=== PATIENT | female | born 1945 | race Caucasian/White ===

== ENCOUNTER 2017-02-04 11:01 | Outpatient (RCR) | payer MEDICARE, OTHER ==
--- OUTSIDE RECORDS SUMMARY | 2017-01-08 10:12 | XMS REPORT | Continuity of Care Document ---
Author Author [facility] Organization [facility] Address Unknown Phone Unavailable Care Team Providers Care Bathhouse Keeper Name Role Phone COURTNEY RAMESH MD PCP Insurance Providers Payer Name Policy Number Subscriber Name Relationship Wps Medicare [id number] Nancie Mas 18 Self / Same As Patient Comm Crossover Enter Ins Name [id number] Nancie Mas 18 Self / Same As Patient Advance Directives Directive Response Recorded Date/Time Advance Directives No 11/25/14 12:12pm Health Care Power of Finance Specialist No 11/25/14 12:12pm Organ Donor Yes 11/25/14 12:12pm Resuscitation Status Full Code 11/25/14 12:12pm Chief Complaint and Reason for Visit Chief Complaint Abdominal/GI Problems Reason for Visit [id number] Problems Medical Problems Problem Onset Date Status Leukocytosis Unknown Active Abdominal pain Unknown Active Colitis, acute Unknown Active C. difficile diarrhea Unknown Active Medications Medication Dose Route Sig Days/Qty Instructions Order Date Discontinued Date Status Indapamide 1.25 Mg PO 12/14/13 Active Lisinopril 40 Mg PO 12/14/13 Active Cholecalciferol (Vitamin D3) 2,000 Unit PO 12/14/13 Active Lactobacillus Combination No.4 1 Each PO 12/14/13 Active Lansoprazole 15 Mg PO 12/14/13 Active Insulin Detemir 100 U SQ DAILY 12/14/13 Active Metformin HCl (Glucophage) 1 Each PO TWICE A DAY WITH MEALS 12/14/13 Active Methotrexate 7.5 Mg PO Q7D 12/14/13 Active Prednisone 2 Mg PO DAILY 12/14/13 Active Folic Acid 1 Mg PO DAILY 12/14/13 Active [enduracin] 750 Mg PO TWICE A DAY 12/14/13 Active Alprazolam 0.25 Mg PO 12/14/13 Active Metoprolol Succinate (Toprol Xl) 1 Each PO DAILY 12/14/13 Active Fluoxetine HCl 1 Each PO DAILY 12/14/13 Active Multivitamins 1 Tab PO 12/14/13 Active Fish Oil/Dha/Epa 1 Each PO 12/14/13 Active Aspirin 81 Mg PO 12/14/13 Active Diphenoxylate Hcl/Atrop Sulf 1 Each PO EVERY 4HRS 11/02/14 Active [Welchol] 625 Mg PO TWICE A DAY 11/02/14 Active Metronidazole 500 Mg PO THREE TIMES A DAY 21 Qty 11/05/14 Active Vancomycin Hcl 125 Mg PO EVERY 6 HOURS 10 Days 11/25/14 Active Ondansetron HCl 8 Mg PO EVERY 6 HOURS PRN NAUSEA/VOMITING 14 Qty Active Social History Social History Problem Response Recorded Date/Time Alcohol Use Denies Use 11/25/2014 12:12pm Recreational Drug Use No 11/25/2014 12:12pm Recent Foreign Travel No 11/25/2014 12:07pm Sexually Transmitted Disease No 11/25/2014 12:12pm HIV/AIDS No 11/25/2014 12:12pm Smoking Status Never a Smoker 11/25/2014 12:12pm Query Response Start Date Stop Date Smoking Status Never a Smoker Hospital Discharge Instructions Patient Instructions Physician Instructions Prescription: Call to Patients Pharmacy Patient Instructions: Office followup one week Discharge Diet: ADA Diet Diet for 24 Hours: No Alcohol, No [place] Foods, No Spicy Foods Drink 6-8 Glasses of Fluid/Day: Yes Driving Instructions: You May Drive Symptoms to Reoprt to Dr.: Appetite Changes Plan of Care Discharge Date 11/05/14 10:20am Disposition 01 HOME, SELF-CARE Condition at Discharge Improved Instructions/Education Provided Clostridium Difficile Infection (DC) Acute Abdominal Pain (ED) Prescriptions See Medications Section Referrals COURTNEY RAMESH MD (Unspecified) Primary Care Physician Address: [place] [address] Reason(s) for Referral: 11:00AM JAYNE FLORES MD (Unspecified) 12/18/14 Address: [address] [place] [address] Reason(s) for Referral: 11:30 AM Functional Status No functional status results. Allergies, Adverse Reactions, Alerts Allergen Type Severity Reaction Status Last Updated No Known Drug Allergies Active 08/18/10 Immunizations Name Given Type Date of Pneumonia Vaccine 08/08/11 Historical Date of Influenza Vaccine 08/08/14 Historical Vital Signs Acute Vital Signs Vital Response Date/Time Temperature (Fahrenheit) 97.9 degrees F (97.6 - 99.5) Temperature (Calculated Celsius) 36.31789 degrees C (36.4 - 37.5) Temperature Source Temporal Pulse Rate (adult) 94 bpm (60 - 90) Respiratory Rate 18 bpm (12 - 24) O2 Sat by Pulse Oximetry 97 % (88 - 100) Blood Pressure 163/91 mm Hg Pain Pain Intensity 0 Height (Feet) 5 feet Height (Inches) 3 inches Height (Calculated Centimeters) 160.238145 cm Weight (Pounds) 150 pounds Weight (Ounces) 0.5 oz Weight (Calculated Grams) 33540.410 gm Weight (Calculated Kilograms) 68.894995 kilograms Calculated BMI 26.57 Results Laboratory Results Test Name Result Units Flags Reference Collection Date/Time Result Date/ Time Comments White Blood Count 15.5 10^3/uL H 4.3-11.0 11/05/2014 5:10am 11/05/2014 5: 36am Red Blood Count 3.70 10^6/uL L 4.35-5.85 11/05/2014 5:10am 11/05/2014 5: 36am Hemoglobin 11.1 G/DL L 11.5-16.0 11/05/2014 5:10am 11/05/2014 5:36am Hematocrit 33 % L 35-52 11/05/2014 5:10am 11/05/2014 5:36am Mean Corpuscular Volume 89 FL 80-99 11/05/2014 5:11/05/2014 5: 36am Mean Corpuscular Hemoglobin 30 PG 25-34 11/05/2014 5:11/05/2014 5: 36am Mean Corpuscular Hemoglobin Concent 34 G/DL 32-36 11/05/2014 5: 5:36am Red Cell Distribution Width 13.7 % 10.0-14.5 11/05/2014 5:2013 5:36am Platelet Count 231 10^3/uL 130-400 11/05/2014 5:11/05/2014 5:36am Mean Platelet Volume 10.4 FL 7.4-10.4 11/05/2014 5:11/05/2014 5: 36am Neutrophils (%) (Auto) 93 % H 42-75 11/05/2014 5:11/05/2014 5:36am Lymphocytes (%) (Auto) 5 % L 12-44 11/05/2014 5:11/05/2014 5:36am Monocytes (%) (Auto) 2 % 0-12 11/05/2014 5:11/05/2014 5:36am Eosinophils (%) (Auto) 0 % 0-10 11/05/2014 5:11/05/2014 5:36am Basophils (%) (Auto) 0 % 0-10 11/05/2014 5:11/05/2014 5:36am Neutrophils # (Auto) 14.5 X 10^3 H 1.8-7.8 11/05/2014 5:11/05/2014 5 :36am Lymphocytes # (Auto) 0.8 X 10^3 L 1.0-4.0 11/05/2014 5:11/05/2014 5: 36am Monocytes # (Auto) 0.3 X 10^3 0.0-1.0 11/05/2014 5:11/05/2014 5: 36am Eosinophils # (Auto) 0.0 10^3/uL 0.0-0.3 11/05/2014 5:11/05/2014 5 :36am Basophils # (Auto) 0.0 10^3/uL 0.0-0.1 11/05/2014 5:11/05/2014 5: 36am Neutrophils % (Manual) 86 % 11/02/2014 1:30pm 11/02/2014 2:14pm Band Neutrophils 2 % 11/02/2014 1:30pm 11/02/2014 2:14pm Lymphocytes % (Manual) 6 % 11/02/2014 1:30pm 11/02/2014 2:14pm Monocytes % (Manual) 3 % 11/02/2014 1:30pm 11/02/2014 2:14pm Eosinophils % (Manual) 3 % 11/02/2014 1:30pm 11/02/2014 2:14pm Basophils % (Manual) 0 % 11/02/2014 1:30pm 11/02/2014 2:14pm Blood Morphology Comment NORMAL 11/02/2014 1:30pm 11/02/2014 2: 14pm Erythrocyte Sedimentation Rate 12 MM/HR 0-30 11/02/2014 6:00pm 2013 7:25pm Urine Color YELLOW 11/02/2014 1:30pm 11/02/2014 3:11pm Urine Clarity CLEAR 11/02/2014 1:30pm 11/02/2014 3:11pm Urine pH 5 5-9 11/02/2014 1:30pm 11/02/2014 3:11pm Urine Specific Mckenzie 1.025 * 1.016-1.022 11/02/2014 1:30pm 2013 3:11pm Urine Protein 1+ * NEGATIVE 11/02/2014 1:30pm 11/02/2014 3:11pm Urine Glucose (UA) NEGATIVE NEGATIVE 11/02/2014 1:30pm 11/02/2014 3: 11pm Urine RBC (Auto) NEGATIVE NEGATIVE 11/02/2014 1:30pm 11/02/2014 3: 11pm Urine Ketones NEGATIVE NEGATIVE 11/02/2014 1:30pm 11/02/2014 3:11pm Urine Nitrite NEGATIVE NEGATIVE 11/02/2014 1:30pm 11/02/2014 3:11pm Urine Bilirubin NEGATIVE NEGATIVE 11/02/2014 1:30pm 11/02/2014 3: 11pm Urine Urobilinogen NORMAL MG/DL NORMAL 11/02/2014 1:30pm 11/02/2014 3: 11pm Urine Leukocyte Esterase NEGATIVE NEGATIVE 11/02/2014 1:30pm 2013 3:11pm Urine RBC NONE /HPF 11/02/2014 1:30pm 11/02/2014 3:11pm Urine WBC NONE /HPF 11/02/2014 1:30pm 11/02/2014 3:11pm Urine Bacteria NEGATIVE /HPF 11/02/2014 1:30pm 11/02/2014 3:11pm Urine Squamous Epithelial Cells 0-2 /HPF 11/02/2014 1:30pm 2013 3:11pm Urine Crystals NONE /LPF 11/02/2014 1:30pm 11/02/2014 3:11pm Urine Casts NONE /LPF 11/02/2014 1:30pm 11/02/2014 3:11pm Urine Mucus NEGATIVE /LPF 11/02/2014 1:30pm 11/02/2014 3:11pm Urine Culture Indicated NO 11/02/2014 1:30pm 11/02/2014 3:11pm Sodium Level 141 MMOL/L 135-145 11/05/2014 5:10am 11/05/2014 6:18am Potassium Level 4.1 MMOL/L 3.6-5.0 11/05/2014 5:10am 11/05/2014 6:18am Chloride Level 113 MMOL/L H 98-107 11/05/2014 5:10am 11/05/2014 6:18am Carbon Dioxide Level 19 MMOL/L L 21-32 11/05/2014 5:10am 11/05/2014 6: 18am Blood Urea Nitrogen 25 MG/DL H 7-18 11/05/2014 5:10am 11/05/2014 6:18am Creatinine 0.79 MG/DL 0.60-1.30 11/05/2014 5:10am 11/05/2014 6:18am BUN/Creatinine Ratio 32 11/05/2014 5:10am 11/05/2014 6:18am Estimat Glomerular Filtration Rate > 60 11/05/2014 5:10am 2013 6:18am GFR INTERPRETIVE DATA UNITS FOR ESTIMATED GFR (eGFR): mL/min/1.73 M2 REFERENCE RANGE FOR ESTIMATED GFR (eGFR) eGFR NORMAL eGFR >60 MODERATELY DECREASED eGFR 30-59 SEVERLY DECREASED eGFR 15-29 KIDNEY FAILURE <15 (OR DIALYSIS) Glucose Level 177 MG/DL H 70-105 11/05/2014 5:10am 11/05/2014 6:18am Glucometer 171 MG/DL H 70-110 11/04/2014 3:53pm 11/04/2014 4:01pm Calcium Level 7.7 MG/DL L 8.5-10.1 11/05/2014 5:10a11/05/2014 6:18am Total Bilirubin 0.2 MG/DL 0.1-1.0 11/05/2014 5:10am 11/05/2014 6:18am Alkaline Phosphatase 53 U/L 40-136 11/05/2014 5:10a11/05/2014 6:18am Aspartate Amino Transf (AST/SGOT) 27 U/L 5-34 11/05/2014 5:10a2013 6:18am Alanine Aminotransferase (ALT/SGPT) 17 U/L 0-55 11/05/2014 5:10a11/05 6:18am Total Protein 4.8 G/DL L 6.4-8.2 11/05/2014 5:10a11/05/2014 6:18am Albumin 2.8 G/DL L 3.2-4.5 11/05/2014 5:10a11/05/2014 6:18am C-Reactive Protein High Sensitivity 2.27 MG/DL H 0.00-0.50 11/02/2014 2: 25pm 11/02/2014 6:42pm Stool Occult Blood Immunoassay POSITIVE * NEGATIVE 11/04/2014 6:05pm 6:39pm White Blood Count 10.7 10^3/uL 4.3-11.0 11/25/2014 12:28pm 11/25/2014 12:40pm Red Blood Count 4.84 10^6/uL 4.35-5.85 11/25/2014 12:28pm 11/25/2014 12 :40pm Hemoglobin 14.2 G/DL 11.5-16.0 11/25/2014 12:28pm 11/25/2014 12:40pm Hematocrit 42 % 35-52 11/25/2014 12:28pm 11/25/2014 12:40pm Mean Corpuscular Volume 87 FL 80-99 11/25/2014 12:28pm 11/25/2014 12: 40pm Mean Corpuscular Hemoglobin 29 PG 25-34 11/25/2014 12:28pm 11/25/2014 12:40pm Mean Corpuscular Hemoglobin Concent 34 G/DL 32-36 11/25/2014 12:pm 12:40pm Red Cell Distribution Width 14.2 % 10.0-14.5 11/25/2014 12:pm 2014 12:40pm Platelet Count 286 10^3/uL 130-400 11/25/2014 12:pm 11/25/2014 12: 40pm Mean Platelet Volume 9.8 FL 7.4-10.4 11/25/2014 12:pm 11/25/2014 12: 40pm Neutrophils (%) (Auto) 73 % 42-75 11/25/2014 12:pm 11/25/2014 12: 40pm Lymphocytes (%) (Auto) 15 % 12-44 11/25/2014 12:pm 11/25/2014 12: 40pm Monocytes (%) (Auto) 9 % 0-12 11/25/2014 12:pm 11/25/2014 12:40pm Eosinophils (%) (Auto) 2 % 0-10 11/25/2014 12:pm 11/25/2014 12:40pm Basophils (%) (Auto) 1 % 0-10 11/25/2014 12:pm 11/25/2014 12:40pm Neutrophils # (Auto) 7.8 X 10^3 1.8-7.8 11/25/2014 12:pm 11/25/2014 12:40pm Lymphocytes # (Auto) 1.6 X 10^3 1.0-4.0 11/25/2014 12:pm 11/25/2014 12:40pm Monocytes # (Auto) 1.0 X 10^3 0.0-1.0 11/25/2014 12:pm 11/25/2014 12: 40pm Eosinophils # (Auto) 0.3 10^3/uL 0.0-0.3 11/25/2014 12:pm 11/25/2014 12:40pm Basophils # (Auto) 0.1 10^3/uL 0.0-0.1 11/25/2014 12:28pm 11/25/2014 12 :40pm Urine Color KEMAR * 11/25/2014 2:04pm 11/25/2014 2:20pm Urine Clarity CLEAR 11/25/2014 2:04pm 11/25/2014 2:20pm Urine pH 5 5-9 11/25/2014 2:04pm 11/25/2014 2:20pm Urine Specific Mckenzie 1.030 * 1.016-1.022 11/25/2014 2:04pm 2014 2:20pm Urine Protein 2+ * NEGATIVE 11/25/2014 2:04pm 11/25/2014 2:20pm Urine Glucose (UA) NEGATIVE NEGATIVE 11/25/2014 2:04pm 11/25/2014 2: 20pm Urine RBC (Auto) 1+ * NEGATIVE 11/25/2014 2:04pm 11/25/2014 2:20pm Urine Ketones 3+ * NEGATIVE 11/25/2014 2:04pm 11/25/2014 2:20pm Urine Nitrite POSITIVE * NEGATIVE 11/25/2014 2:04pm 11/25/2014 2:20pm Urine Bilirubin 1+ * NEGATIVE 11/25/2014 2:04pm 11/25/2014 2:20pm Urine Urobilinogen 1 MG/DL NORMAL 11/25/2014 2:04pm 11/25/2014 2:20pm Urine Leukocyte Esterase 3+ * NEGATIVE 11/25/2014 2:04pm 11/25/2014 2: 20pm Urine RBC 0-2 /HPF 11/25/2014 2:04pm 11/25/2014 2:20pm Urine WBC 5-10 /HPF * 11/25/2014 2:04pm 11/25/2014 2:20pm Urine Bacteria MODERATE /HPF * 11/25/2014 2:04pm 11/25/2014 2:20pm Urine Crystals PRESENT /LPF * 11/25/2014 2:04pm 11/25/2014 2:20pm Urine Amorphous Sediment FEW BRANDON URATES /LPF * 11/25/2014 2:0411/25 2:20pm Urine Casts PRESENT /LPF 11/25/2014 2:04pm 11/25/2014 2:20pm Urine Hyaline Casts >50 /LPF * 11/25/2014 2:04pm 11/25/2014 2:20pm Urine Mucus NEGATIVE /LPF 11/25/2014 2:04pm 11/25/2014 2:20pm Urine Culture Indicated YES 11/25/2014 2:04pm 11/25/2014 2:20pm Sodium Level 138 MMOL/L 135-145 11/25/2014 12:11/25/2014 12:59pm Potassium Level 3.8 MMOL/L 3.6-5.0 11/25/2014 12:11/25/2014 12: 59pm Chloride Level 101 MMOL/L 98-107 11/25/2014 12:11/25/2014 12:59pm Carbon Dioxide Level 22 MMOL/L 21-32 11/25/2014 12:11/25/2014 12: 59pm Blood Urea Nitrogen 26 MG/DL H 7-18 11/25/2014 12:11/25/2014 12: 59pm Creatinine 1.16 MG/DL 0.60-1.30 11/25/2014 12:11/25/2014 12:59pm BUN/Creatinine Ratio 22 11/25/2014 12:11/25/2014 12:59pm Estimat Glomerular Filtration Rate 46 11/25/2014 12:2014 12:59pm GFR INTERPRETIVE DATA UNITS FOR ESTIMATED GFR (eGFR): mL/min/1.73 M2 REFERENCE RANGE FOR ESTIMATED GFR (eGFR) eGFR NORMAL eGFR >60 MODERATELY DECREASED eGFR 30-59 SEVERLY DECREASED eGFR 15-29 KIDNEY FAILURE <15 (OR DIALYSIS) Glucose Level 115 MG/DL H 70-105 11/25/2014 12:11/25/2014 12:59pm Calcium Level 10.2 MG/DL H 8.5-10.1 11/25/2014 12:11/25/2014 12: 59pm Total Bilirubin 0.5 MG/DL 0.1-1.0 11/25/2014 12:11/25/2014 12: 59pm Alkaline Phosphatase 63 U/L 40-136 11/25/2014 12:11/25/2014 12: 59pm Aspartate Amino Transf (AST/SGOT) 22 U/L 5-34 11/25/2014 12:2014 12:59pm Alanine Aminotransferase (ALT/SGPT) 18 U/L 0-55 11/25/2014 12:pm 12:59pm Total Protein 7.0 G/DL 6.4-8.2 11/25/2014 12:11/25/2014 12:59pm Albumin 3.6 G/DL 3.2-4.5 11/25/2014 12:28pm 11/25/2014 12:59pm Procedures No known history of procedures. Encounters Encounter Location Date/Time Departed Emergency Room Via [facility] 11/25/14 12:01pm Discharged Inpatient [facility] 11/02/14 5:06pm Recent Diagnosis
[~2017-02-04 11:01] MED LIST: ALPR0.25 PO; ALPR0.5T7 PO; ASCO-262 PO; ASPI-624 PO; ATOR10TA PO; CHOL200018 PO; CYAN10006 PO; DIPH1TAB PO; ESCI20TA45 PO; ESOM20TA PO; FISH1CAP15 PO; FLC1T PO; FLUO20CA42 PO; HYDR200T46 PO; INDA1.25 PO; INSU100V5 SQ; LACT1CAP58 PO; LACT1CAP66 PO; LANS15CA PO; LEVO500T80 PO; LISI40TA PO; METO25TA PO; METR500T PO; MTF500T PO; MTX2.5T PO; MULT-608 PO; NAPR220T66 PO; ONDA8TAB9 PO; PRD1T PO; PRED5TAB PO; VANC125C4 PO; WELCHOL PO; [UNRECOGNIZED DRUG - OTHER] PO; enduracin PO
== END 2017-02-04 11:58 | disposition home or self-care (01) ==
PROVIDERS: ATTEND Physician Assistant
DX: M54.5 Low back pain (principal)

== ENCOUNTER → 2017-02-09 | Outpatient (CLI) | payer MEDICARE, OTHER ==
--- NOTE | 2017-02-09 18:21 | Diagnostic Imaging Report ---
EXAMINATION: Digital mammogram bilateral screening. INDICATION: Screening. COMPARISON: This study was compared to the prior exams of 04/17/2015, 12/06/2013, and 10/25/12. At this time, there are no current complaints. The current study was also evaluated with a Computer Aided Detection (CAD) system. FINDINGS: There are scattered fibroglandular densities in both breasts which could obscure a lesion. Overall, there does not appear to have been any significant change when compared to the prior exam. No primary or secondary sign of malignancy is noted. IMPRESSION: There is no radiographic evidence for malignancy. ACR BI-RADS Category 1: Negative. Result letter will be mailed to the patient. Note: At least 10% of breast cancer is not imaged by mammography. Dictated by: Dictated on workstation # [id number]
== END ==
LOC: RAD 08:57
PROVIDERS: ATTEND Family Medicine
DX: Z12.31 Encounter for screening mammogram for malignant neoplasm of breast (principal)
CPT/HCPCS: 77067

== ENCOUNTER 2017-06-27 08:40 | Emergency (ER) | payer MEDICARE, OTHER ==
[~2017-06-27] VITALS: Ht 160 cm; Wt 72.6 kg
[2017-06-27] MEDS ORDERED: LACTATED RINGERS 1,000 ML IV ONE (09:04)
[2017-06-27] MEDS ORDERED: ONDANSETRON 4 MG/2 ML (SDV) Z0FRAN IVP ONE (09:15)
[2017-06-27 09:31] LABS: BASOPHILS % (AUTO) 0 % (0-10); EOSINOPHILS # (AUTO) 0.1 10^3/uL (0.0-0.3); EOSINOPHILS % (AUTO) 1 % (0-10); LYMPHOCYTES # (AUTO) 0.6 X 10^3 (1.0-4.0); LYMPHOCYTES % (AUTO) 4 % (12-44); MEAN CORPUSCULAR HEMOGLOBIN 31 PG (25-34); MEAN CORPUSCULAR HGB CONC 34 G/DL (32-36); MEAN CORPUSCULAR VOLUME 92 FL (80-99); MEAN PLATELET VOLUME 10.5 FL (7.4-10.4); MONOCYTES # (AUTO) 0.7 X 10^3 (0.0-1.0); MONOCYTES % (AUTO) 4 % (0-12); NEUTROPHILS # (AUTO) 14.1 X 10^3 (1.8-7.8); NEUTROPHILS % (AUTO) 91 % (42-75); PLATELET COUNT 179 10^3/uL (130-400); RED BLOOD COUNT 4.21 10^6/uL (4.35-5.85); RED CELL DISTRIBUTION WIDTH 12.8 % (10.0-14.5); WHITE BLOOD COUNT 15.5 10^3/uL (4.3-11.0)
[2017-06-27 09:42] LABS: ALBUMIN 3.5 GM/DL (3.2-4.5); BILIRUBIN,TOTAL 0.7 MG/DL (0.1-1.0); CALCIUM 8.8 MG/DL (8.5-10.1); CREATININE SERUM 1.11 MG/DL (0.60-1.30); POTASSIUM 3.1 MMOL/L (3.6-5.0); TOTAL PROTEIN 6.4 GM/DL (6.4-8.2)
[2017-06-27 09:48] LABS: BILIRUBIN,URINE 1+ (NEGATIVE); KETONES,URINE NEGATIVE (NEGATIVE); LEUKOCYTE ESTERASE ,URINE 1+ (NEGATIVE); NITRITE,URINE NEGATIVE (NEGATIVE); PH,URINE 5 (5-9); PROTEIN,URINE 2+ (NEGATIVE); UROBILINOGEN,URINE NORMAL (NORMAL)
[2017-06-27 10:04] LABS: EOSINOPHILS % (MANUAL) 2 %; LYMPHOCYTES % (MANUAL) 3 %; NEUTROPHILS % (MANUAL) 93 %
[2017-06-27] MEDS ORDERED: IOHEXOL 350 MG/ML 100 ML (OMNIPAQUE 350) VIAL IV ONE (10:15)
[2017-06-27] MEDS ORDERED: NS 100 ML (IVPB) BAG IV ONE (10:15)
[2017-06-27 10:25] LABS: WBC,URINE 25-50 /HPF
[2017-06-27 10:27] LABS: SQUAMOUS EPITHELIAL CELL,UR 0-2 /HPF
--- NOTE | 2017-06-27 10:47 | Diagnostic Imaging Report ---
INDICATION: Nausea, vomiting COMPARISON: None FINDINGS: Acute abdominal series demonstrates normal chest. There is no infiltrate. No free air seen. There is some nonspecific gas filled loops of bowel in the right midabdomen. This could represent enteritis and/or reactive ileus. There is no obstruction or free air. Osseous structures are age-appropriate. IMPRESSION: 1. Nonspecific nondistended gas-filled loops of small bowel in the right midabdomen, probably enteritis. 2. No obstruction or free air identified. 3. Normal chest Dictated by: Dictated on workstation # [id number]
--- NOTE | 2017-06-27 11:04 | Diagnostic Imaging Report ---
PROCEDURE: CT abdomen and pelvis with contrast. TECHNIQUE: Multiple contiguous axial images were obtained through the abdomen and pelvis after administration of intravenous contrast. INDICATION: Abdominal pain, nonspecific gas-filled loops of small bowel. COMPARISON: [facility] same day and CT 11/02/2014. FINDINGS: Lung bases are clear. The gallbladder is surgically absent. Liver, spleen, pancreas, adrenal glands, kidneys and vascular structures are stable. The previously described nonspecific gas-filled loops of small bowel on the KUB are no longer seen. The course and caliber of the large and small bowel are grossly unremarkable. There is no free air or free fluid. No inflammatory process is identified. Uterus is surgically absent. Distal ureters and urinary bladder are grossly normal. There is no hernia. No lymphadenopathy identified. The osseous structures are age-appropriate. IMPRESSION: 1. Surgically absent gallbladder and uterus. 2. Normal bowel gas pattern. No distention, inflammation or obstruction is identified. Dictated by: Dictated on workstation # [id number]
--- NOTE | 2017-06-27 11:07 | ED GI ---
General Chief Complaint: Abdominal/GI Problems Stated Complaint: DIARRHEA,VOMITING,LEG PAIN Nursing Triage Note: PT REPORTS N/V/D, HEADACHE, LEG PAIN STARTING ON WEDNESDAY. PT TOOK GABAPENTIN OVERNIGHT TO HELP WITH DISCOMFORT, WITHOUT MINIMAL IMPROVEMENT. PT HAS BEEN ON ANTIBIOTICS FOR ONE WEEK FOR AN ELEVATED WHITE COUNT. Sepsis Screen: No Definite Risk Source of Information: Patient History of Present Illness Time Seen By Provider: 09:00 Initial Comments C/O NAUSEA/VOMITING/DIARRHEA SINCE Wednesday06/25/17 HAS ALSO HAD MILD GENERALIZED ABDOMINAL SORENESS HAS HAD SUBJECTIVE FEVER--STATES SHE "FELT HOT", BUT COULD NOT FIGURE OUT HOW TO USE THERMOMETER PT STATES SHE DOESN'T KNOW IF SHE IS HAVING ANY PROBLEMS URINATING HAS HAD A MILD HEADACHE AND LEGS ACHE WELL NO KNOWN SICK CONTACTS OR SUSPICIOUS FOODS. PT HAS POLYMYALGIA RHEUMATICA AND IS FOLLOWED BY DR. HOLCOMB, AND HAD ROUTINE LAB DONE LAST WEEK, AND WAS TOLD SHE HAD AN ELEVATED WBC, SO WAS STARTED ON CEFDINIR 06/17/17 , WITHOUT A KNOWN CAUSE FOR INFECTION. AND PT WAS NOT HAVING ANY SYMPTOMS AT THAT TIME. PCP: DR. RAMESH HOT BOX SPOTTER: DR. HOLCOMB Allergies and Home Medications Allergies Coded Allergies: No Known Drug Allergies (Unverified , 08/18/10) Home Medications Alprazolam 0.5 Mg Tablet, 0.25 MG PO Q8H PRN for ANXIETY, (Reported) TAKES 1/2 OF A (0.5 MG) TABLET Ascorbate Calcium 500 Mg Tablet, 1,000 MG PO DAILY, (Reported) Aspirin 81 Mg Tablet, 81 MG PO MoFr, (Reported) Atorvastatin Calcium 10 Mg Tablet, 10 MG PO DAILY, #30 Ref 3 Prescribed by: PINEDA BEST on 06/24/16 1426 Cholecalciferol (Vitamin D3) 2,000 Unit Capsule, 2,000 UNIT PO DAILY, (Reported) Cyanocobalamin (Vitamin B-12) 1,000 Mcg Tablet, 1,000 MCG PO DAILY, (Reported) Escitalopram Oxalate 20 Mg Tablet, 20 MG PO DAILY, (Reported) Esomeprazole Magnesium 20 Mg Tablet.dr, 20 MG PO DAILY, (Reported) Fish Oil/Dha/Epa 1 Each Capsule, 1,200 MG PO DAILY, (Reported) Folic Acid 1 Mg Tablet, 1 MG PO DAILY, (Reported) Hydroxychloroquine Sulfate 200 Mg Tablet, 200 MG PO BID, (Reported) Hyoscyamine Sulfate 0.125 Mg Tab.subl, 1-2 TAB SL Q4H, #15 Prescribed by: PARMJIT MARSHALL on 06/27/17 1117 Indapamide 1.25 Mg Tablet, 1.25 MG PO DAILY, (Reported) Lact Cmb2/S.thermophl/Bif Cmb1 1 Each Capsule, 1 CAP PO DAILY, (Reported) Lactobacillus Acidophilus 1 Each Capsule, 2 EACH PO QID, #80 Prescribed by: PARMJIT MARSHALL on 06/27/17 1127 Levofloxacin 500 Mg Tablet, 500 MG PO DAILY, (Reported) FILLED 06/16/16 #10 FOR A 10 DAY THERAPY Lisinopril 40 Mg Tablet, 40 MG PO DAILY, (Reported) Metoprolol Succinate 25 Mg Tab.sr.24h, 25 MG PO DAILY, (Reported) Naproxen Sodium 220 Mg Tablet, 440 MG PO BID PRN for PAIN, (Reported) Nitrofurantoin Monohyd/M-Cryst 100 Mg Capsule, 100 MG PO BID, #30 Prescribed by: PARMJIT MARSHALL on 06/27/17 1117 Ondansetron 4 Mg Tab.rapdis, 4 MG PO Q4H, #10 Prescribed by: PARMJIT MARSHALL on 06/27/17 1118 Prednisone 5 Mg Tablet, 5 MG PO DAILY, (Reported) [Extreme Hair The] , 1 TAB PO BID, (Reported) Review of Systems Constitutional: see HPI, fever, malaise EENTM: No Symptoms Reported Respiratory: No Symptoms Reported Cardiovascular: No Symptoms Reported Gastrointestinal: See HPI Genitourinary: See HPI Musculoskeletal: no symptoms reported Skin: no symptoms reported Psychiatric/Neurological: No Symptoms Reported Endocrine: No Symptoms Reported Hematologic/Lymphatic: No Symptoms Reported Past Zqfqija-Acszqy-Pnapod Hx Patient Social History Alcohol Use: Rarely Uses Recreational Drug Use: No Smoking Status: Former Smoker Recent Foreign Travel: No Contact w/Someone Who Travel: No Recent Infectious Disease Expo: No Recent Hopitalizations: No Immunizations Up To Date Tetanus Booster (TDap): More than 5yrs Date of Pneumonia Vaccine: Aug 08, 2011 Date of Influenza Vaccine: Aug 08, 2014 Seasonal Allergies Seasonal Allergies: Yes (SINUS) Surgeries HX Surgeries: Yes Surgeries: Appendectomy, Gallbladder, Hysterectomy Respiratory Hx Respiratory Disorders: No Cardiovascular Hx Cardiac Disorders: Yes Cardiac Disorders: Hypertension Neurological Hx Neurological Disorders: No Reproductive System : No Hx Reproductive Disorders: No Sexually Transmitted Disease: No HIV/AIDS: No Female Reproductive Disorders: 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 Genitourinary Hx Genitourinary Disorders: No Genitourinary Disorders: Bladder Infection, UTI-Chronic Gastrointestinal Hx Gastrointestinal Disorders: Yes (LAST MONTH DIARRHEA, C DIFF) Gastrointestinal Disorders: Colitis, Diverticulosis, Irritable Bowel Musculoskeletal Hx Musculoskeletal Disorders: Yes (POLYMYALGIA RHEUMATICA) Musculoskeletal Disorders: Degenerate Disk Disease, Arthritis Endocrine Hx Endocrine Disorders: Yes Endocrine Disorders: Diabetes, Non-Insulin dep HEENT HX ENT Disorders: Yes HEENT Disorders: Cataract Cancer Hx Cancer: No Psychosocial Hx Psychiatric Problems: Yes Behavioral Health Disorders: Depression Integumentary HX Skin/Integumentary Disorder: No Blood Transfusions Hx Blood Disorders: No Family Medical History Family Medial History: Diabetes mellitus 19 MOTHER FH: lung cancer 19 FATHER Hypertension 19 MOTHER Physical Exam Vital Signs VS - Last 72 Hours, by Label 06/27/17 06/27/17 08:54 11:36 Temp 98.8 Pulse 91 68 Resp 16 16 B/P (MAP) 131/73 Pulse Ox 97 97 O2 Delivery Room Air Capillary Refill : Less Than 3 Seconds General Appearance: WD/WN, no apparent distress HEENT: PERRL/EOMI, normal ENT inspection Neck: non-tender, full range of motion, supple, normal inspection Respiratory: normal breath sounds, no respiratory distress, no accessory muscle use Cardiovascular: normal peripheral pulses, regular rate, rhythm, no edema, no JVD, no murmur Gastrointestinal: normal bowel sounds, non tender, soft, no organomegaly, no pulsatile mass Extremities: normal range of motion, non-tender, normal inspection, no pedal edema, no calf tenderness, normal capillary refill Back: no CVA tenderness Neurologic/Psychiatric: mat machine tender II-XII nml as tested, no motor/sensory deficits, alert, normal mood/affect, oriented x 3 Skin: normal color, warm/dry Progress/Results/Core Measures Results/Orders Lab Results Laboratory Tests Test 06/27/17 09:10 06/27/17 09:40 Range/Units White Blood Count 15.5 H 4.3-11.0 10^3/uL Red Blood Count 4.21 L 4.35-5.85 10^6/uL Hemoglobin 13.0 11.5-16.0 G/DL Hematocrit 39 35-52 % Mean Corpuscular Volume 92 80-99 FL Mean Corpuscular Hemoglobin 31 25-34 PG Mean Corpuscular Hemoglobin Concent 34 32-36 G/DL Red Cell Distribution Width 12.8 10.0-14.5 % Platelet Count 179 130-400 10^3/uL Mean Platelet Volume 10.5 H 7.4-10.4 FL Neutrophils (%) (Auto) 91 H 42-75 % Lymphocytes (%) (Auto) 4 L 12-44 % Monocytes (%) (Auto) 4 0-12 % Eosinophils (%) (Auto) 1 0-10 % Basophils (%) (Auto) 0 0-10 % Neutrophils # (Auto) 14.1 H 1.8-7.8 X 10^3 Lymphocytes # (Auto) 0.6 L 1.0-4.0 X 10^3 Monocytes # (Auto) 0.7 0.0-1.0 X 10^3 Eosinophils # (Auto) 0.1 0.0-0.3 10^3/uL Basophils # (Auto) 0.0 0.0-0.1 10^3/uL Neutrophils % (Manual) 93 % Lymphocytes % (Manual) 3 % Monocytes % (Manual) 2 % Eosinophils % (Manual) 2 % Blood Morphology Comment NORMAL Sodium Level 138 135-145 MMOL/L Potassium Level 3.1 L 3.6-5.0 MMOL/L Chloride Level 101 98-107 MMOL/L Carbon Dioxide Level 24 21-32 MMOL/L Anion Gap 13 5-14 MMOL/L Blood Urea Nitrogen 20 H 7-18 MG/DL Creatinine 1.11 0.60-1.30 MG/DL Estimat Glomerular Filtration Rate 48 BUN/Creatinine Ratio 18 Glucose Level 165 H 70-105 MG/DL Calcium Level 8.8 8.5-10.1 MG/DL Total Bilirubin 0.7 0.1-1.0 MG/DL Aspartate Amino Transf (AST/SGOT) 31 5-34 U/L Alanine Aminotransferase (ALT/SGPT) 32 0-55 U/L Alkaline Phosphatase 65 40-136 U/L Total Protein 6.4 6.4-8.2 GM/DL Albumin 3.5 3.2-4.5 GM/DL Amylase Level 110 25-125 U/L Lipase 118 H 8-78 U/L Urine Color KEMAR H Urine Clarity SLIGHTLY CLOUDY Urine pH 5 5-9 Urine Specific [place] 1.025 H 1.016-1.022 Urine Protein 2+ H NEGATIVE Urine Glucose (UA) NEGATIVE NEGATIVE Urine Ketones NEGATIVE NEGATIVE Urine Nitrite NEGATIVE NEGATIVE Urine Bilirubin 1+ H NEGATIVE Urine Urobilinogen NORMAL NORMAL MG/DL Urine Leukocyte Esterase 1+ H NEGATIVE Urine RBC (Auto) 2+ H NEGATIVE Urine RBC NONE /HPF Urine WBC 25-50 H /HPF Urine Squamous Epithelial Cells 0-2 /HPF Urine Crystals PRESENT H /LPF Urine Amorphous Sediment LARGE BRANDON URATES H /LPF Urine Bacteria FEW H /HPF Urine Casts PRESENT /LPF Urine Coarse Granular Casts 2-5 H /LPF Urine Mucus NEGATIVE /LPF Urine Culture Indicated YES My Orders Orders - PARMJIT MARSHALL DO Saline Lock/Iv-Start (06/27/17 09:04) Amylase (06/27/17 09:04) Cbc With Automated Diff (06/27/17 09:04) Comprehensive Metabolic Panel (06/27/17 09:04) Lipase (06/27/17 09:04) Ua Culture If Indicated (06/27/17 09:04) Saline Lock/Iv-Start (06/27/17 09:04) Lactated Ringers (Lr 1000 Ml Iv Solution (06/27/17 09:04) Ondansetron Injection (Zofran Injectio (06/27/17 09:15) Manual Differential (06/27/17 09:10) Ct Abdomen/Pelvis W (06/27/17 10:04) Acute Abd Series (06/27/17 10:04) Iohexol Injection (Omnipaque 350 Mg/Ml 1 (06/27/17 10:15) Ns (Ivpb) (Sodium Chloride 0.9% Ivpb Bag (06/27/17 10:15) Urine Culture (06/27/17 09:40) Medications Given in ED Current Medications Medications Dose Ordered Sig/Mathew Route Start Time Stop Time Status Last Admin Dose Admin Iohexol 100 ml ONCE ONCE IV 06/27/17 10:15 06/27/17 10:16 DC 06/27/17 10:38 100 ML Lactated Ringer's 1,000 ml @ 0 mls/hr Q0M ONCE IV 06/27/17 09:04 06/27/17 09:05 DC 06/27/17 09:24 1,000 MLS/HR Ondansetron HCl 4 mg ONCE ONCE IVP 06/27/17 09:15 06/27/17 09:16 DC 06/27/17 09:24 4 MG Sodium Chloride 100 ml ONCE ONCE IV 06/27/17 10:15 06/27/17 10:16 DC 06/27/17 10:39 80 ML Vital Signs/I&O Vital Sign - Last 12Hours 06/27/17 06/27/17 08:54 11:36 Temp 98.8 Pulse 91 68 Resp 16 16 B/P (MAP) 131/73 Pulse Ox 97 97 O2 Delivery Room Air Blood Pressure Mean: 92 Progress Note : Progress Note NAUSEA RESOLVED WITH ZOFRAN NO ABDOMINAL PAIN/CRAMPING AND NO DIARRHEA DURING ER STAY Diagnostic Imaging Comments ACUTE ABDOMEN XRAYS--NON-SPECIFIC BOWEL GAS PATTERN CT ABDOMEN/PELVIS--NO ACUTE PROCESS, NORMAL BOWEL GAS PATTERN PER RADIOLOGIST REPORTS @ 1106 Reviewed: Reviewed by Me Departure Impression Impression: Primary Impression: Gastroenteritis Additional Impression: UTI (urinary tract infection) Disposition: HOME, SELF-CARE Condition: Improved Departure-Patient Inst. Referrals: COURTNEY RAMESH MD (PCP/Family) Primary Care Physician Patient Instructions: Urinary Tract Infection, Adult (DC), Viral Gastroenteritis Add. Discharge Instructions: CLEAR LIQUIDS--WATER, BROTH, JELLO, GATORADE BRATS DIET --BANANAS, RICE, APPLESAUCE, TOAST, SALTINES FOLLOW UP WITH YOUR DR IN 2-3 DAYS FOR FURTHER CARE RETURN TO ER IF WORSE All discharge instructions reviewed with patient and/or family. Voiced understanding. Scripts Lactobacillus Acidophilus (Acidophilus) 1 Each Capsule 2 EACH PO QID, #80 CAP Prov: PARMJIT MARSHALL DO 06/27/17 Ondansetron (Zofran Odt) 4 Mg Tab.rapdis 4 MG PO Q4H for Nausea/Vomiting, #10 TAB Prov: PARMJIT MARSHALL K DO 06/27/17 Hyoscyamine Sulfate (Levsin-Sl) 0.125 Mg Tab.subl 1-2 TAB SL Q4H for Abdominal Pain, #15 TAB Prov: DINORAH MARSHALLA K DO 06/27/17 Nitrofurantoin Monohyd/M-Cryst (Macrobid 100 mg Capsule) 100 Mg Capsule 100 MG PO BID, #30 CAP Prov: PARMJIT MARSHALL DO 06/27/17 PARMJIT MARSHALL DO Jun 27, 2017 11:07
[2017-06-27] MEDS ORDERED: NITR-65 PO (11:17)
[2017-06-27] MEDS ORDERED: HYOS0.1283 SL (11:17)
[2017-06-27] MEDS ORDERED: ONDA4TAB8 PO (11:18)
[2017-06-27] MEDS ORDERED: LACT1CAP8 PO (11:27)
[2017-06-27 11:36] VITALS: BP 128/68
== END 2017-06-27 11:36 | disposition home or self-care (01) ==
LOC: EDUNIT# 08:40 → ER 08:41
DX: K52.9 Noninfective gastroenteritis and colitis, unspecified (principal); N39.0 Urinary tract infection, site not specified; F32.9 Major depressive disorder, single episode, unspecified; E11.9 Type 2 diabetes mellitus without complications; M47.9 Spondylosis, unspecified; I10 Essential (primary) hypertension; Z90.49 Acquired absence of other specified parts of digestive tract; Z90.710 Acquired absence of both cervix and uterus; Z87.891 Personal history of nicotine dependence; Z79.82 Long term (current) use of aspirin; Z87.19 Personal history of other diseases of the digestive system
CPT/HCPCS: 36415; 74022; 74177; 80053; 81000; 82150; 83690; 85007; 85027; 87088; 96361; 96374

== ENCOUNTER 2017-12-27 11:15 | Outpatient (RCR) | payer MEDICARE, OTHER ==
[~2017-12-27 11:15] MED LIST changes: +HYOS0.1283 SL; +LACT1CAP8 PO; +NITR-65 PO; +ONDA4TAB8 PO
== END 2018-01-03 08:58 | disposition home or self-care (01) ==
PROVIDERS: ATTEND Physician Assistant
DX: M54.16 Radiculopathy, lumbar region (principal)

== ENCOUNTER → 2018-03-21 | Outpatient (CLI) | payer MEDICARE, OTHER ==
--- NOTE | 2018-03-21 13:37 | Diagnostic Imaging Report ---
INDICATION: Routine screening. COMPARISON: 02/09/2017 and 04/17/2015. TECHNIQUE: 2D and 3D bilateral screening mammography was performed with CAD. FINDINGS: Scattered fibroglandular densities are identified bilaterally. The parenchymal pattern is stable. No dominant mass or malignant appearing microcalcifications are seen. The axillae are unremarkable. IMPRESSION: No mammographic features suspicious for malignancy are identified. ACR BI-RADS Category 1: Negative. Result letter will be mailed to the patient. Note: At least 10% of breast cancer is not imaged by mammography. Dictated by: Dictated on workstation # [id number]
== END ==
LOC: RAD 09:26
PROVIDERS: ATTEND Nurse Practitioner Family
DX: Z12.31 Encounter for screening mammogram for malignant neoplasm of breast (principal)
CPT/HCPCS: 77067

== ENCOUNTER → 2018-07-13 | Outpatient (CLI) | payer MEDICARE, OTHER ==
[~2018-07-13] VITALS: Ht 162.6 cm; Wt 78.0 kg
[~2018-07-13] MED LIST changes: +CATHETER FLUSH 10 ML SYR IV PRN; +REGADENOSON 0.4 MG/5 ML SYR (LEXISCAN) IV ONE
[2018-07-13 09:34] VITALS: BP 165/76
--- NOTE | 2018-07-13 19:14 | STRESS TEST ---
DATE OF SERVICE: 07/13/2018 LEXISCAN MYOVIEW STRESS TEST REPORT REFERRING PHYSICIAN: Dr. Lovett. Baseline heart rate is 66. Baseline blood pressure 142/87. Baseline EKG is sinus rhythm with no ischemic changes. In summary, the patient was injected with 10.56 mCi of technetium-99 Myoview and the resting images were obtained. Then, the patient received 0.4 mg of Lexiscan followed by 32.4 mCi of technetium-99 Myoview. Throughout the test, there were no EKG changes. The resting and stress images were reviewed and compared in the short axis, horizontal long axis, and vertical long axis views. Review of the images showed good radiotracer uptake with no significant ischemia or infarction. SSS is 5, SDS 3, TID value 1.01. On the gated images, the left ventricle appeared to be normal size with normal contractility. Calculated ejection fraction 62%. CONCLUSION: 1. The patient tolerated Lexiscan well. 2. Breast attenuation with no significant ischemia or infarction, typical female pattern. 3. Normal left ventricular size with normal contractility. Calculated ejection fraction 57%. Job ID: [id number] DocumentID: [id number] Dictated Date: 07/13/2018 15:45:05 Monument Stonecutter Date: 07/13/2018 19:14:12 Dictated By: PINEDA BEST MD
== END ==
LOC: CARD 07:41
PROVIDERS: ATTEND Internal Medicine Cardiovascular Disease
DX: R07.89 Other chest pain (principal); I10 Essential (primary) hypertension; E78.5 Hyperlipidemia, unspecified; E11.9 Type 2 diabetes mellitus without complications; M35.3 Polymyalgia rheumatica
CPT/HCPCS: 78452; 93017

== ENCOUNTER 2019-05-18 13:31 | Outpatient (CLI) | payer MEDICARE, OTHER ==
[~2019-05-18] VITALS: Ht 160 cm; Wt 70.8 kg
[~2019-05-18 13:31] MED LIST changes: -CATHETER FLUSH 10 ML SYR IV PRN; -REGADENOSON 0.4 MG/5 ML SYR (LEXISCAN) IV ONE
[2019-05-18 13:45] VITALS: BP 128/79
[2019-05-18] MEDS ORDERED: NS IV 1000 ML 1,000 ML IV SCH (14:00)
[2019-05-18 14:11] LABS: BILIRUBIN,URINE NEGATIVE (NEGATIVE); CLARITY,URINE CLEAR; COLOR,URINE YELLOW; GLUCOSE, URINE (UA) NEGATIVE (NEGATIVE); HEMOGLOBIN 12.7 G/DL (11.5-16.0); KETONES,URINE NEGATIVE (NEGATIVE); LEUKOCYTE ESTERASE ,URINE NEGATIVE (NEGATIVE); NITRITE,URINE NEGATIVE (NEGATIVE); PH,URINE 7 (5-9); PROTEIN,URINE NEGATIVE (NEGATIVE); UROBILINOGEN,URINE NORMAL (NORMAL)
[2019-05-18 14:12] LABS: MEAN PLATELET VOLUME 10.6 FL (7.4-10.4); RED CELL DISTRIBUTION WIDTH 13.2 % (10.0-14.5)
[2019-05-18 14:28] LABS: BACTERIA,URINE NEGATIVE /HPF; WBC,URINE RARE /HPF
[2019-05-18 14:29] LABS: ALBUMIN 4.1 GM/DL (3.2-4.5); BILIRUBIN,TOTAL 0.4 MG/DL (0.1-1.0); CALCIUM 9.4 MG/DL (8.5-10.1); CREATININE SERUM 1.47 MG/DL (0.60-1.30); POTASSIUM 4.2 MMOL/L (3.6-5.0); TOTAL PROTEIN 6.6 GM/DL (6.4-8.2)
== END 2019-05-18 15:20 | disposition home or self-care (01) ==
LOC: SDC 13:31
PROVIDERS: ATTEND Nurse Practitioner Family
DX: N39.0 Urinary tract infection, site not specified (principal); E86.0 Dehydration
CPT/HCPCS: 36415; 80053; 81000; 85027

== ENCOUNTER 2020-10-11 22:18 | Observation (INO) | payer MEDICARE, OTHER ==
[~2020-10-11] VITALS: Ht 160 cm; Wt 67.2 kg
[~2020-10-11 22:18] MED LIST changes: +CYAN-41 PO; -CYAN10006 PO
--- NOTE | 2020-10-11 22:38 | ED Chest Pain ---
General Chief Complaint: Dizziness/Syncope Stated Complaint: CHEST HEAVINESS/LIGHTHEADED/BILAT ARM NUMBNESS Nursing Triage Note: PT AMBULATE TO ROOM 05 WITH C/O LIGHTHEADNESS, BILAT HAND NUMBNESS STARTING AT 2100 TONIGHT. Nursing Sepsis Screen: No Definite Risk Source: patient Exam Limitations: no limitations History of Present Illness Date Seen by Provider: Oct 11, 2020 Time Seen by Provider: 22:20 Initial Comments The patient presents to the ER by private conveyance with family and chief complaint that at 9:00, an hour and a half prior to arrival she started experiencing some pressure and fullness in her chest. She denies any pain but she was having some numbness and tingling down both of her arms. She had some mild nausea this morning she took and ondansetron for. She does not have a histo ry of heart attack or stents but she is known to Dr. Bolanos. She has had a coronary angiogram in the past. She rates the discomfort as a 2 out of 10 presently. She was not doing anything exertional at the time. Walking does not make it worse. She has no shortness of air fevers chills cough or sick contacts. She has had chronic nausea and diarrhea for the past several months. She denies taking any blood thinners. She stopped taking her aspirin for the past couple months because of her recent back surgery. She has had her gallbladder and appendix surgically removed. She quit smoking many years ago. She only rarely drinks and has no history of pancreatitis. Cardiac catheterization [address] 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 Nonobstructive lesion. 60% EF. History of hypertension, hyperlipidemia. Allergies and Home Medications Allergies Coded Allergies: No Known Drug Allergies (Unverified , 08/18/10) Home Medications Alprazolam 0.5 Mg Tablet, 0.25 MG PO Q8H PRN for ANXIETY, (Reported) TAKES 1/2 OF A (0.5 MG) TABLET Ascorbate Calcium 500 Mg Tablet, 1,000 MG PO DAILY, (Reported) Aspirin 81 Mg Tablet, 81 MG PO MoFr, (Reported) Atorvastatin Calcium 10 Mg Tablet, 10 MG PO DAILY Prescribed by: PINEDA BOLANOS on 06/24/16 6436 Cholecalciferol (Vitamin D3) 2,000 Unit Capsule, 2,000 UNIT PO DAILY, (Reported) Cyanocobalamin (Vitamin B-12) 1,000 Mcg Tablet, 1,000 MCG PO DAILY, (Reported) Escitalopram Oxalate 20 Mg Tablet, 20 MG PO DAILY, (Reported) Esomeprazole Magnesium 20 Mg Tablet.dr, 20 MG PO DAILY, (Reported) Fish Oil/Dha/Epa 1 Each Capsule, 1,200 MG PO DAILY, (Reported) Folic Acid 1 Mg Tablet, 1 MG PO DAILY, (Reported) Hydroxychloroquine Sulfate 200 Mg Tablet, 200 MG PO BID, (Reported) Hyoscyamine Sulfate 0.125 Mg Tab.subl, 1-2 TAB SL Q4H Prescribed by: PARMJIT MARSHALL on 06/27/17 1117 Indapamide 1.25 Mg Tablet, 1.25 MG PO DAILY, (Reported) Lact Cmb2/S.thermophl/Bif Cmb1 1 Each Capsule, 1 CAP PO DAILY, (Reported) Lactobacillus Acidophilus 1 Each Capsule, 2 EACH PO QID Prescribed by: PARMJIT MARSHALL on 06/27/17 1127 Levofloxacin 500 Mg Tablet, 500 MG PO DAILY, (Reported) FILLED 06/16/16 #10 FOR A 10 DAY THERAPY Lisinopril 40 Mg Tablet, 40 MG PO DAILY, (Reported) Metoprolol Succinate 25 Mg Tab.sr.24h, 25 MG PO DAILY, (Reported) Naproxen Sodium 220 Mg Tablet, 440 MG PO BID PRN for PAIN, (Reported) Nitrofurantoin Monohyd/M-Cryst 100 Mg Capsule, 100 MG PO BID Prescribed by: PARMJIT MARSHALL on 06/27/17 111 Ondansetron 4 Mg Tab.rapdis, 4 MG PO Q4H Prescribed by: PARMJIT MARSHALL on 06/27/17 1118 Prednisone 5 Mg Tablet, 5 MG PO DAILY, (Reported) [Extreme Hair The] , 1 TAB PO BID, (Reported) Patient Home Medication List Home Medication List Reviewed: Yes Review of Systems Review of Systems Constitutional: No chills, No fever EENTM: No Blurred Vision, No Double Vision Respiratory: Denies Cough, Denies Shortness of Air Cardiovascular: Denies Chest Pain, Denies Edema Gastrointestinal: Denies Abdominal Pain, Denies Constipated; Diarrhea, Nausea; Denies Poor Fluid Intake, Denies Vomiting Genitourinary: Denies Burning, Denies Discharge Musculoskeletal: No back pain, No joint pain Skin: No pruritus, No rash Psychiatric/Neurological: Denies Headache, Denies Numbness All Other Systems Reviewed Negative Unless Noted: Yes Past Ptjvvfw-Achlku-Epyhxa Hx Patient Social History Alcohol Use: Occasionally Uses Alcohol Beverage of Choice: Wine Recreational Drug Use: No Smoking Status: Former Smoker Former Smoker, Quit: Jun 24, 1993 2nd Hand Smoke Exposure: No Recent Foreign Travel: No Contact w/Someone Who Travel: No Recent Infectious Disease Expo: No Recent Hopitalizations: No Physical Abuse: No Sexual Abuse: No Mistreated: No Fear: No Immunizations Up To Date Tetanus Booster (TDap): More than 5yrs Date of Pneumonia Vaccine: Aug 08, 2011 Date of Influenza Vaccine: Aug 08, 2014 Seasonal Allergies Seasonal Allergies: Yes (SINUS) Past Medical History Surgeries: Yes (BACK ) Appendectomy, Gallbladder, Hysterectomy Respiratory: No Cardiac: Yes Hypertension Neurological: No Reproductive Disorders: No Female Reproductive Disorders: 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 Sexually Transmitted Disease: No HIV/AIDS: No Bladder Infection, UTI-Chronic Gastrointestinal: Yes (LAST MONTH DIARRHEA, C DIFF) Colitis, Diverticulosis, Irritable Bowel Musculoskeletal: Yes (polymyalgia) Degenerate Disk Disease, Arthritis Endocrine: Yes Diabetes, Non-Insulin dep Cataract Cancer: No Psychosocial: Yes Depression Integumentary: No Blood Disorders: No Family Medical History Diabetes mellitus 19 MOTHER FH: lung cancer 19 FATHER Hypertension 19 MOTHER Physical Exam Vital Signs Vital Signs - First Documented 10/11/20 22:24 Temp 35.9 Pulse 80 Resp 18 B/P (MAP) 175/87 (116) O2 Delivery Room Air Capillary Refill : Less Than 3 Seconds Height, Weight, BMI Height: 5'3.00" Weight: 156lbs. 0.0oz. [id number]; 26.00 BMI Method:Stated General Appearance: No Apparent Distress, WD/WN HEENT: PERRL/EOMI, TMs Normal, Normal ENT Inspection, Pharynx Normal, Moist Mucous Membranes Neck: Full Range of Motion, Normal Inspection, Non Tender, Supple Respiratory: Chest Non Tender, Lungs Clear, Normal Breath Sounds, No Accessory Muscle Use, No Respiratory Distress Cardiovascular: Regular Rate, Rhythm, No Edema Gastrointestinal: Normal Bowel Sounds, No Organomegaly, Non Tender, Soft Extremity: Normal Capillary Refill, Normal Inspection, Non Tender, No Calf Tenderness, No Pedal Edema Neurologic/Psychiatric: Alert, Oriented x3 Skin: Warm/Dry, Ecchymosis Progress/Results/Core Measures Results/Orders Lab Results Laboratory Tests Test 10/11/20 22:48 Range/Units White Blood Count 7.4 4.3-11.0 10^3/uL Red Blood Count 4.05 3.80-5.11 10^6/uL Hemoglobin 12.0 11.5-16.0 g/dL Hematocrit 38 35-52 % Mean Corpuscular Volume 93 80-99 fL Mean Corpuscular Hemoglobin 30 25-34 pg Mean Corpuscular Hemoglobin Concent 32 32-36 g/dL Red Cell Distribution Width 13.3 10.0-14.5 % Platelet Count 244 130-400 10^3/uL Mean Platelet Volume 9.8 9.0-12.2 fL Immature Granulocyte % (Auto) 0 % Neutrophils (%) (Auto) 65 42-75 % Lymphocytes (%) (Auto) 23 12-44 % Monocytes (%) (Auto) 10 0-12 % Eosinophils (%) (Auto) 2 0-10 % Basophils (%) (Auto) 0 0-10 % Neutrophils # (Auto) 4.8 1.8-7.8 10^3/uL Lymphocytes # (Auto) 1.7 1.0-4.0 10^3/uL Monocytes # (Auto) 0.7 0.0-1.0 10^3/uL Eosinophils # (Auto) 0.1 0.0-0.3 10^3/uL Basophils # (Auto) 0.0 0.0-0.1 10^3/uL Immature Granulocyte # (Auto) 0.0 0.0-0.1 10^3/uL Prothrombin Time 12.0 L 12.2-14.7 SEC INR Comment 0.9 0.8-1.4 Activated Partial Thromboplast Time 30 24-35 SEC Sodium Level 137 135-145 MMOL/L Potassium Level 4.0 3.6-5.0 MMOL/L Chloride Level 105 98-107 MMOL/L Carbon Dioxide Level 21 21-32 MMOL/L Anion Gap 11 5-14 MMOL/L Blood Urea Nitrogen 30 H 7-18 MG/DL Creatinine 1.29 0.60-1.30 MG/DL Estimat Glomerular Filtration Rate 40 BUN/Creatinine Ratio 23 Glucose Level 134 H 70-105 MG/DL Calcium Level 8.4 L 8.5-10.1 MG/DL Corrected Calcium 8.5 8.5-10.1 MG/DL Magnesium Level 1.6 1.6-2.4 MG/DL Total Bilirubin 0.2 0.1-1.0 MG/DL Aspartate Amino Transf (AST/SGOT) 27 5-34 U/L Alanine Aminotransferase (ALT/SGPT) 20 0-55 U/L Alkaline Phosphatase 63 40-136 U/L Myoglobin 145.4 H 10.0-92.0 NG/ML Troponin I < 0.028 <0.028 NG/ML B-Type Natriuretic Peptide 78.3 <100.0 PG/ML Total Protein 6.2 L 6.4-8.2 GM/DL Albumin 3.9 3.2-4.5 GM/DL Lipase 56 8-78 U/L My Orders Orders - ASHLEE EASON Ekg Tracing (10/11/20 22:20) Continuous Ekg Monitoring (10/11/20 22:20) Cbc With Automated Diff (10/11/20 22:31) Magnesium (10/11/20 22:31) Chest 1 View, Ap/Pa Only (10/11/20 22:31) Comprehensive Metabolic Panel (10/11/20 22:31) Myoglobin Serum (10/11/20 22:31) Protime With Inr (10/11/20 22:31) Partial Thromboplastin Time (10/11/20 22:31) O2 (10/11/20 22:31) Lipid Panel (10/12/20 06:00) Ed Iv/Invasive Line Start (10/11/20 22:31) Lipase (10/11/20 22:31) BNP (10/11/20 22:31) Troponin I (10/11/20 22:31) Nitroglycerin 0.4 Mg Btl 25's (Nitrostat (10/11/20 22:45) Aspirin Chewable Tablet (Baby Aspirin Ch (10/11/20 22:45) Medications Given in ED Current Medications Medications Dose Ordered Sig/Mathew Route Start Time Stop Time Status Last Admin Dose Admin Aspirin 324 mg ONCE ONCE PO 10/11/20 22:45 10/11/20 22:46 DC 10/11/20 22:36 324 MG Nitroglycerin 0.4 mg UD PRN SL 10/11/20 22:45 10/11/20 22:37 0.4 MG Vital Signs/I&O 10/11/20 22:24 Temp 35.9 Pulse 80 Resp 18 B/P (MAP) 175/87 (116) O2 Delivery Room Air Blood Pressure Mean: 116 Progress Progress Note : Time: 22:37 Progress Note Plan to give her some aspirin to chew up and swallow and trial a dose of nitroglycerin. Initial EKG unremarkable. We will get some labs to workup a possible atypical angina, lipase and get a chest x-ray. Initial ECG Impression Date: Oct 11, 2020 Initial ECG Impression Time: 22:26 Initial ECG Rate: 79 Initial ECG Rhythm: Normal Sinus Initial ECG Intervals: Normal Initial ECG Impression: Normal, Nonspecific Changes Comment Sinus arrhythmia without clinically relevant ST changes. Diagnostic Imaging Diagonstic Imaging: Xray Plain Films/CT/US/NM/MRI: chest Comments No acute cardiopulmonary processes on one view chest x-ray. Reviewed: Reviewed by Me Departure Communication (Admissions) Time/Spoke to Admitting Phy: 01:20 Discussed the case with Dr. Mathew and she agrees to observe the patient for chest pain, ACS Time/Spoke to Consulting Phy: 01:10 Discussed the case with Dr. Claudio and he agrees with observation and consultation. Impression Primary Impression: Unstable angina Disposition: ADMITTED INPATIENT Condition: Stable Admissions Decision to Admit Reason: Admit from ER (General) Decision to Admit/Date: Oct 12, 2020 Time/Decision to Admit Time: 01:00 Departure-Patient Inst. Referrals: KWEIS DISLA MD (PCP/Family) Primary Care Physician ASHLEE EASON Oct 11, 2020 22:38
[2020-10-11] MEDS ORDERED: NITROGLYCERIN 0.4 MG SL TABS BTL 25'S SL PRN (22:45)
[2020-10-11] MEDS ORDERED: ASPIRIN 81 MG CHEW (CHILDREN'S ASA) PO ONE (22:45)
[2020-10-11 22:57] LABS: BASOPHILS % (AUTO) 0 % (0-10); EOSINOPHILS # (AUTO) 0.1 10^3/uL (0.0-0.3); EOSINOPHILS % (AUTO) 2 % (0-10); HEMATOCRIT 38 % (35-52); LYMPHOCYTES # (AUTO) 1.7 10^3/uL (1.0-4.0); LYMPHOCYTES % (AUTO) 23 % (12-44); MEAN CORPUSCULAR HEMOGLOBIN 30 pg (25-34); MEAN CORPUSCULAR HGB CONC 32 g/dL (32-36); MEAN CORPUSCULAR VOLUME 93 fL (80-99); MEAN PLATELET VOLUME 9.8 fL (9.0-12.2); MONOCYTES # (AUTO) 0.7 10^3/uL (0.0-1.0); MONOCYTES % (AUTO) 10 % (0-12); NEUTROPHILS # (AUTO) 4.8 10^3/uL (1.8-7.8); NEUTROPHILS % (AUTO) 65 % (42-75); PLATELET COUNT 244 10^3/uL (130-400); WHITE BLOOD COUNT 7.4 10^3/uL (4.3-11.0)
[2020-10-11 23:08] LABS: INR 0.9 (0.8-1.4)
[2020-10-11 23:09] LABS: ALBUMIN 3.9 GM/DL (3.2-4.5)
[2020-10-11 23:10] LABS: CALCIUM 8.4 MG/DL (8.5-10.1)
[2020-10-11 23:11] LABS: TOTAL PROTEIN 6.2 GM/DL (6.4-8.2)
[2020-10-11 23:13] LABS: BILIRUBIN,TOTAL 0.2 MG/DL (0.1-1.0)
[2020-10-11 23:15] LABS: CREATININE SERUM 1.29 MG/DL (0.60-1.30)
[2020-10-11 23:17] LABS: MAGNESIUM 1.6 MG/DL (1.6-2.4)
[2020-10-12] VITALS (13 sets, daily range): BP systolic 116–166; BP diastolic 72–90
--- NOTE | 2020-10-12 03:15 | NUR ---
ARCADIO OLMEDO admitted to room 415-1, with an admitting diagnosis of chest pain/angina, on 10/12/20 from ER via , accompanied by ER staff. ARCADIO OLMEDO introduced to surroundings, call light, bed controls, phone, TV, temperature control, lights, meal times, smoking policy, visitor policy, side rail policy, bathrooms and showers. Patient Rights given to patient in the handbook. ARCADIO OLMEDO verbalizes understanding that [facility] is not responsible for the loss or damage to any personal effects or valuables that are kept in the patients possession during their hospitalization.
[2020-10-12] MEDS ORDERED: morphine INJ 4 MG/ML 1 ML (VIAL/SYRINGE) IV PRN (03:30)
[2020-10-12] MEDS ORDERED: ONDANSETRON 4 MG/2 ML (SDV) Z0FRAN IVP PRN (03:30)
[2020-10-12] MEDS ORDERED: NITROGLYCERIN 0.4 MG SL TABS BTL 25'S SL PRN (03:30)
[2020-10-12] MEDS ORDERED: ANTACID SUSP 30 ML UDC (MYLANTA) PO PRN (03:30)
[2020-10-12] MEDS ORDERED: ACETAMINOPHEN 325 MG TABLET PO PRN (03:30)
[2020-10-12] MEDS: LACTATED RINGERS 1,000 ML IV SCH ×2 (04:06→13:41)
[2020-10-12] MEDS ORDERED: MULT-1029 PO (05:15)
[2020-10-12] MEDS ORDERED: ATOR40TA70 PO (05:15)
[2020-10-12] MEDS ORDERED: HYDR25TA4 PO (05:15)
[2020-10-12] MEDS ORDERED: LISI40TA PO (05:17)
[2020-10-12] MEDS ORDERED: METO50TA7 PO (05:17)
[2020-10-12] MEDS ORDERED: ACHD5005 PO (05:19)
[2020-10-12] MEDS ORDERED: TRIM100T PO (05:23)
[2020-10-12] MEDS ORDERED: L GA1CAP2 PO (05:23)
[2020-10-12] MEDS ORDERED: DENO60DI SQ (05:23)
[2020-10-12] MEDS ORDERED: FLUO40CA PO (05:23)
[2020-10-12] MEDS ORDERED: ACET-2650 PO (05:23)
[2020-10-12] MEDS ORDERED: POTASSIUM PO (05:26)
[2020-10-12 05:28] LABS: BASOPHILS % (AUTO) 0 % (0-10); EOSINOPHILS # (AUTO) 0.2 10^3/uL (0.0-0.3); EOSINOPHILS % (AUTO) 3 % (0-10); HEMATOCRIT 37 % (35-52); HEMOGLOBIN 11.6 g/dL (11.5-16.0); LYMPHOCYTES % (AUTO) 30 % (12-44); MEAN CORPUSCULAR HEMOGLOBIN 30 pg (25-34); MEAN CORPUSCULAR HGB CONC 31 g/dL (32-36); MEAN CORPUSCULAR VOLUME 95 fL (80-99); MEAN PLATELET VOLUME 10.6 fL (9.0-12.2); MONOCYTES # (AUTO) 0.7 10^3/uL (0.0-1.0); MONOCYTES % (AUTO) 10 % (0-12); NEUTROPHILS # (AUTO) 3.9 10^3/uL (1.8-7.8); NEUTROPHILS % (AUTO) 58 % (42-75); PLATELET COUNT 203 10^3/uL (130-400); WHITE BLOOD COUNT 6.9 10^3/uL (4.3-11.0)
[2020-10-12 05:33] LABS: ALBUMIN 3.7 GM/DL (3.2-4.5); CHLORIDE 109 MMOL/L (98-107); SODIUM 143 MMOL/L (135-145)
[2020-10-12 05:35] LABS: CALCIUM 8.5 MG/DL (8.5-10.1); TRIGLYCERIDES 113 MG/DL (<150); VLDL CHOLESTEROL 23 MG/DL (5-40)
[2020-10-12 05:36] LABS: GLUCOSE 121 MG/DL (70-105); TOTAL PROTEIN 5.9 GM/DL (6.4-8.2)
[2020-10-12 05:37] LABS: CARBON DIOXIDE 20 MMOL/L (21-32)
[2020-10-12 05:38] LABS: BILIRUBIN,TOTAL 0.2 MG/DL (0.1-1.0)
[2020-10-12 05:39] LABS: ALKALINE PHOSPHATASE 62 U/L (40-136); CREATININE SERUM 1.17 MG/DL (0.60-1.30); GFR ESTIMATED 45
[2020-10-12 05:40] LABS: CHOLESTEROL 169 MG/DL (< 200)
[2020-10-12 05:41] LABS: BUN/CREATININE RATIO 23
[2020-10-12 05:42] LABS: HDL CHOLESTEROL 75 MG/DL (40-60)
[2020-10-12 05:43] LABS: ALANINE AMINOTRANSFERASE 18 U/L (0-55)
--- NOTE | 2020-10-12 08:26 | Diagnostic Imaging Report ---
INDICATION: Lightheadedness, bilateral hand numbness. COMPARISON: 06/27/2017 FINDINGS: No infiltrate, effusion, pneumothorax or failure pattern. IMPRESSION: No acute appearing abnormality. Dictated by: Dictated on workstation # [id number]
[2020-10-12] MEDS ORDERED: ASPIRIN E.C. 81 MG (ECOTRIN) TAB PO SCH (09:00)
--- NOTE | 2020-10-12 10:27 | History & Physical ---
HPI History of Present Illness: Patient presented to the ED last night with chest fullness that started with rest. She also had arm tingling with this bilaterally. It lasted for about an hour and was almost gone when she presented to the ED. She does follow with Dr. Bolanos and last saw him last week. She has a history of cardiac catheritization in 2016 as noted in ED note. Dr. Claudio was consulted in the ED and we are waiting on third troponin to be drawn at 1100. Patient has no complaints at this time. Source: patient, RN/MD, EMS Date seen by provider: Oct 12, 2020 Time Seen by Provider: 10:26 Attending Physician Belinda Wells MD PCP Sada Lovett MD Consult Date of Admission Oct 12, 2020 at 01:20 Home Medications Home Medications Reviewed patient Home Medication Reconciliation performed by pharmacy medication reconciliations chemistry quality control technician and/or nursing. Patients Allergies have been reviewed. Allergies Coded Allergies: No Known Drug Allergies (Unverified , 08/18/10) AEQ-Sepfhy-Yypazk Hx Patient Social History Marrital Status: single Alcohol Use: Occasionally Uses Recreational Drug Use: No Smoking Status: Former Smoker 2nd Hand Smoke Exposure: No Recent Foreign Travel: No Contact w/other who traveled: No Recent Hopitalizations: No Recent Infectious Disease Expo: No Immunizations Up To Date Tetanus Booster (TDap): More than 5yrs Date of Pneumonia Vaccine: Aug 08, 2019 Date of Influenza Vaccine: Jun 10, 2020 Past Medical History Generalized anxiety disorder, depression, hypertension and hyperlipidemia. Coronary artery disease. Family Medical History Family History: Diabetes mellitus 19 MOTHER FH: lung cancer 19 FATHER Hypertension 19 MOTHER Review of Systems ([facility]) Constitutional: No chills, No diaphoresis, No dizziness, No fever, No malaise EENTM: No ear discharge, No ear pain, No vision loss, No hoarseness Respiratory: No cough, No dyspnea on exertion, No hemoptysis, No orthopnea, No phlegm Cardiovascular: No edema, No palpitations, No syncope Gastrointestinal: No abdominal pain, No constipation, No diarrhea Genitourinary: No decreased output, No discharge, No dysuria, No frequency Musculoskeletal: No joint swelling, No muscle pain Skin: no symptoms reported Psychiatric/Neurological: No Symptoms Reported Physical Exam-([facility]) Physical Exam Vital Signs VS - Last 72 Hours, by Label 10/11/20 10/12/20 10/12/20 10/12/20 22:24 02:59 03:15 03:23 Temp 35.9 36.2 Pulse 80 59 62 Resp 18 17 17 B/P (MAP) 175/87 (116) 132/78 143/76 Pulse Ox 98 100 99 O2 Delivery Room Air Room Air Room Air Room Air 10/12/20 10/12/20 10/12/20 10/12/20 03:23 03:32 03:47 04:02 Temp 36.2 36.6 Pulse 62 64 61 72 Resp 17 18 18 18 B/P (MAP) 143/76 (98) 140/82 (101) 148/82 (104) 138/90 (106) Pulse Ox 99 99 99 99 O2 Delivery Room Air Room Air Room Air Room Air 10/12/20 10/12/20 10/12/20 10/12/20 04:08 04:12 05:11 05:21 Temp 36.2 Pulse 76 73 60 58 Resp 18 18 B/P (MAP) 166/80 (108) 136/77 (96) 136/77 (96) Pulse Ox 100 97 O2 Delivery Room Air Room Air 10/12/20 10/12/20 10/12/20 10/12/20 06:35 06:59 07:00 08:59 Temp 36.6 Pulse 60 70 66 Resp 18 B/P (MAP) 149/80 (103) 148/77 (100) Pulse Ox 100 99 99 O2 Delivery Room Air Room Air Room Air Capillary Refill : Less Than 3 Seconds General Appearance: WD/WN, no apparent distress Eyes: Bilateral Eye Normal Inspection, Bilateral Eye PERRL, Bilateral Eye EOMI HEENT: PERRL/EOMI Neck: non-tender Respiratory: chest non-tender, lungs clear, normal breath sounds, no respiratory distress, no accessory muscle use Cardiovascular: regular rate, rhythm, no edema Gastrointestinal: normal bowel sounds, non tender, soft Back: normal inspection, no CVA tenderness, no vertebral tenderness Extremities: normal range of motion, no pedal edema Neurologic/Psychiatric: no motor/sensory deficits, alert, normal mood/affect, oriented x 3 Skin: normal color, warm/dry Assessment/Plan Assessment/Plan Admission Dx Chest pain. Admission Status: Observation (1) Chest pain Assessment & Plan: Consult Dr. Claudio. Will wait on 1100 troponin. May be able to go home if negative and follow-up outpatient. Will await his recs. Patient not currently having chest pain. (2) Essential (primary) hypertension Assessment & Plan: Stable. Home meds not available currently. Clinical Quality Measures DVT/VTE Risk/Contraindication: Risk Factor Score Per Nursin RFS Level Per Nursing on Admit: 2=Moderate BELINDA WELLS MD Oct 12, 2020 10:27
--- NOTE | 2020-10-12 14:38 | NUR ---
THIS RN ASKED DR. WELLS IF PATIENT IS STILL NPO OR CAN HAVE DIET ORDER. DR. WELLS GAVE TELEPHONE ORDER FOR REGULAR DIET.
--- NOTE | 2020-10-12 15:53 | Consultation-Cardiology ---
HPI-Cardiology Cardiology Consultation: Date of Consultation 10/12/20 Date of Admission Attending Physician Felicity Zarate MD Admitting Physician Sada Lovett MD Consulting Physician Kimberly CLAUDIO MD HPI: Time Seen by a Provider: 15:00 Chief Complaint: Chest discomfort This is a 75-year-old lady who is a patient of Dr. Bolanos. She has history of mild to moderate CAD. Coronary angiography done by Dr. Bolanos in 2016 showed [id number] disease in the LAD and RCA. FFR of the RCA was within acceptable limits therefore no PCI was done. She had a nuclear stress test done in 2018 which was also unremarkable. She presented with an episode of dizziness, tingling of the arms and chest discomfort which continued on for 30 minutes. Mild to moderate intensity. No radiation. No exacerbating or relieving factors. When I saw the patient she denied any further chest discomfort. She denies active smoking. Pertinent family history is negative. Review of Systems-Cardiology Review of Systems Constitutional: As described under HPI; No As described under HPI, No no symptoms reported, No chills, No fever, No lightheadedness Eyes: No As described under HPI, No no symptoms reported, No blindness, No blurred vision, No contact lenses, No drainage, No decreased acuity, No foreign body sensation, No pain, No vision change Ears/Nose/Throat: No As described under HPI, No no symptoms reported, No chronic hearing loss, No ear discharge, No ear pain, No nasal drainage, No ulcerations Respiratory: No no symptoms reported; As described under HPI; No As described under HPI, No cough, No orthopnea, No shortness of breath, No SOB with excertion Cardiovascular: No no symptoms reported; As described under HPI; No As described under HPI; chest pain; No edema, No irregular heart rate; lightheadedness; No palpitations Gastrointestinal: No no symptoms reported, No As described under HPI, No abdomen distended, No abdominal pain, No blood streaked bowels, No constipation, No diarrhea, No nausea, No vomiting, No stool coloration changes Genitourinary: No As described under HPI, No burning, No dysuria, No discharge, No frequency, No flank pain, No hematuria, No urgency : Yes : No Skin: No rash, No skin related problems, No ulcerations Psychiatric/Neurological: No anxiety, No depression, No seizure, No focal weakness, No syncope Hematologic: No bleeding abnormalities All Other Systems Reviewed Negative Unless Noted: Yes [id number]-[id number]-Utfosx Hx Patient Social History Marrital Status: single Alcohol Use: Occasionally Uses Recreational Drug Use: No Smoking Status: Former Smoker 2nd Hand Smoke Exposure: No Recent Foreign Travel: No Recent Infectious Disease Expo: No Hospitalization with Isolation: Denies Immunizations Up To Date Tetanus Booster (TDap): More than 5yrs Date of Pneumonia Vaccine: Aug 08, 2019 Date of Influenza Vaccine: Jun 10, 2020 Past Medical History PMH As described under Assessment. Family Medical History Family History: Diabetes mellitus 19 MOTHER FH: lung cancer 19 FATHER Hypertension 19 MOTHER Allergies and Home Medications Allergies Coded Allergies: No Known Drug Allergies (Unverified , 08/18/10) Home Medications Acetaminophen 650 Mg Tablet.er, 650 MG PO Q8H PRN for PAIN-MILD (1-4), (Reported) Alprazolam 0.5 Mg Tablet, 0.5 MG PO HS PRN for ANXIETY, (Reported) Ascorbate Calcium 500 Mg Tablet, 1,000 MG PO DAILY, (Reported) Aspirin 81 Mg Tablet, 81 MG PO MoFr, (Reported) HOLDING SINCE JUL 2020 BACK SURGERY Atorvastatin Calcium 40 Mg Tablet, 40 MG PO DAILY, (Reported) Cholecalciferol (Vitamin D3) 2,000 Unit Capsule, 2,000 UNIT PO DAILY, (Reported) Cyanocobalamin (Vitamin B-12) 1,000 Mcg Tablet, 1,000 MCG PO DAILY, (Reported) Esomeprazole Magnesium 20 Mg Tablet.dr, 20 MG PO DAILY, (Reported) Fluoxetine HCl 40 Mg Capsule, 40 MG PO DAILY, (Reported) Folic Acid 1 Mg Tablet, 1 MG PO DAILY, (Reported) Hydrochlorothiazide 25 Mg Tablet, 25 MG PO DAILY, (Reported) Hydrocodone/Acetaminophen 1 Each Tablet, 1 TAB PO Q6H PRN for PAIN-MODERATE (5- 7), (Reported) Hydroxychloroquine Sulfate 200 Mg Tablet, 200 MG PO BID, (Reported) Lisinopril 40 Mg Tablet, 40 MG PO DAILY, (Reported) Metoprolol Succinate 50 Mg Tab.er.24h, 50 MG PO DAILY, (Reported) Multivit-Min/FA/Lycopene/Lut 1 Each Tablet, 1 EACH PO DAILY, (Reported) Prednisone 5 Mg Tablet, 5 MG PO DAILY, (Reported) Trimethoprim 100 Mg Tablet, 100 MG PO DAILY, (Reported) l Gasseri/B Bifidum/B Longum 1 Each Capsule, 1 EACH PO DAILY, (Reported) Patient Home Medication List Home Medication List Reviewed: Yes Physical Exam-Cardiology Physical Exam Vital Signs/I&O 10/12/20 10/12/20 10/12/20 10/12/20 04:02 04:08 04:12 05:11 Temp 36.6 36.2 Pulse 72 76 73 60 Resp 18 18 18 B/P (MAP) 138/90 (106) 166/80 (108) 136/77 (96) Pulse Ox 99 100 97 O2 Delivery Room Air Room Air Room Air 10/12/20 10/12/20 10/12/20 10/12/20 05:21 06:35 06:59 07:00 Temp 36.6 Pulse 58 60 70 66 Resp 18 B/P (MAP) 136/77 (96) 149/80 (103) 148/77 (100) Pulse Ox 100 99 O2 Delivery Room Air Room Air 10/12/20 10/12/20 08:59 12:34 Pulse 85 Pulse Ox 99 O2 Delivery Room Air Capillary Refill : Less Than 3 Seconds Constitutional: appears stated age, AAO x 3; No apparent distress; well- developed, well-nourished HEENT: PERRL; No discharge; hearing is well preserved, oral hygience is good; No ulceration, No xanthelasmas are seen Neck: No carotid bruit; carotid pulses are 2 + bilaterally Respiratory: chest is bilaterally symmetric, lungs clear to auscultation Cardiovascular: regular rate-rhythm, S1 and S2; No diastolic murmur, No systolic murmur Gastrointestinal: soft, audible bowel sounds; No spleenomegaly Rectal: deferred Extremities: normal range of motion, non-tender, normal inspection; No clubbing, No cyanosis; no lower extremity edema bilateral; No significant edema Neurologic/Psychiatric: no motor/sensory deficits, alert, normal mood/affect, oriented x 3, power is 5/5 both on sides Skin: normal color, warm/dry; No rash, No ulcerations Data Review Labs Laboratory Tests 10/11/20 22:48: White Blood Count 7.4, Red Blood Count 4.05, Hemoglobin 12.0, Hematocrit 38, Mean Corpuscular Volume 93, Mean Corpuscular Hemoglobin 30, Mean Corpuscular Hemoglobin Concent 32, Red Cell Distribution Width 13.3, Platelet Count 244, Mean Platelet Volume 9.8, Immature Granulocyte % (Auto) 0, Neutrophils (%) (Auto) 65, Lymphocytes (%) (Auto) 23, Monocytes (%) (Auto) 10, Eosinophils (%) (Auto) 2, Basophils (%) (Auto) 0, Neutrophils # (Auto) 4.8, Lymphocytes # (Auto) 1.7, Monocytes # (Auto) 0.7, Eosinophils # (Auto) 0.1, Basophils # (Auto) 0.0, Immature Granulocyte # (Auto) 0.0, Prothrombin Time 12.0L, INR Comment 0.9, Activated Partial Thromboplast Time 30, Sodium Level 137, Potassium Level 4.0, Chloride Level 105, Carbon Dioxide Level 21, Anion Gap 11, Blood Urea Nitrogen 30H, Creatinine 1.29, Estimat Glomerular Filtration Rate 40, BUN/Creatinine Ratio 23, Glucose Level 134H, Calcium Level 8.4L, Corrected Calcium 8.5, Magnesium Level 1.6, Total Bilirubin 0.2, Aspartate Amino Transf (AST/SGOT) 27, Alanine Aminotransferase (ALT/SGPT) 20, Alkaline Phosphatase 63, Myoglobin 145.4H, Troponin I < 0.028, B-Type Natriuretic Peptide 78.3, Total Protein 6.2L, Albumin 3.9, Lipase 56 10/12/20 04:55: White Blood Count 6.9, Red Blood Count 3.92, Hemoglobin 11.6, Hematocrit 37, Mean Corpuscular Volume 95, Mean Corpuscular Hemoglobin 30, Mean Corpuscular Hemoglobin Concent 31L, Red Cell Distribution Width 13.4, Platelet Count 203, Me an Platelet Volume 10.6, Immature Granulocyte % (Auto) 0, Neutrophils (%) (Auto) 58, Lymphocytes (%) (Auto) 30, Monocytes (%) (Auto) 10, Eosinophils (%) (Auto) 3, Basophils (%) (Auto) 0, Neutrophils # (Auto) 3.9, Lymphocytes # (Auto) 2.0, Monocytes # (Auto) 0.7, Eosinophils # (Auto) 0.2, Basophils # (Auto) 0.0, Immature Granulocyte # (Auto) 0.0, Sodium Level 143, Potassium Level 4.0, Chloride Level 109H, Carbon Dioxide Level 20L, Anion Gap 14, Blood Urea Nitrogen 27H, Creatinine 1.17, Estimat Glomerular Filtration Rate 45, BUN/Creatinine Ratio 23, Glucose Level 121H, Calcium Level 8.5, Corrected Calcium 8.7, Total Bilirubin 0.2, Aspartate Amino Transf (AST/SGOT) 25, Alanine Aminotransferase (ALT/SGPT) 18, Alkaline Phosphatase 62, Troponin I < 0.028, Total Protein 5.9L, Albumin 3.7, Triglycerides Level 113, Cholesterol Level 169, LDL Cholesterol Direct 73, VLDL Cholesterol 23, HDL Cholesterol 75H 10/12/20 11:00: Troponin I < 0.028 A/P-Cardiology Assessment/Admission Diagnosis Chest pain, CAD, Hypertension, Dizziness. Plan Chest pain, no further chest pain. 3 serial troponin are negative. Acute coronary syndrome ruled out. I discussed at length with the patient and recommended that she follows Dr. Bolanos on 10/14/2020 on Wednesday. I also recommended that if she has any further chest discomfort she should seek immediate medical attention. She understands and agrees with the plan. CAD, patient has history of moderate CAD on coronary angiography in 2016. Negative stress test in 2018. Continue outpatient medical therapy including aspirin, statin, lisinopril and metoprolol. Hypertension, continue outpatient medical therapy including beta merlyn, lisinopril and hydrochlorothiazide.. Dizziness. Will likely require an event monitor in the near future. I will defer to Dr. Bolanos. Thank you for your consultation. Please call me if you have any questions. Izabella Claudio MD, FACP, FACC, FSCAI, FHRS, CCDS Interventional Cardiology Cardiac Electrophysiology Vascular Medicine and Endovascular Interventions Clinical Quality Measures DVT/VTE Risk/Contraindication: Risk Factor Score Per Nursin RFS Level Per Nursing on Admit: 2=Moderate Kimberly CLAUDIO MD Oct 12, 2020 15:53
--- NOTE | 2020-10-12 16:11 | Discharge Summary ---
Discharge [facility] Reconcile Patient Problems Problems Reviewed?: Yes Discharge Medications New, Converted or Re-Newed RX: Other (No new medications. continue home medications.) Patient Instructions Goal/Follow Up Appt: Please call Dr. Bolanos's office on Wednesday. You will likely need an event monitor. Please refer to Dr. Claudio's consult. Return to The Hospital For: Please return to Hospital for chest pain. Do not exert yourself until you have been cleared by Dr. Bolanos. Activity & Diet Discharge Diet: Cardiac Diet Activity as Tolerated: Yes BELINDA WELLS MD Oct 12, 2020 16:11
== END 2020-10-12 17:35 | disposition home or self-care (01) ==
LOC: EDUNIT# 22:18 → ER 22:20 → 4TH 10-12 01:20
PROVIDERS: ADMIT Family Medicine; ATTEND Family Medicine
DX: I25.110 Atherosclerotic heart disease of native coronary artery with unstable angina pectoris (principal); I10 Essential (primary) hypertension; E78.5 Hyperlipidemia, unspecified; M19.90 Unspecified osteoarthritis, unspecified site; N39.0 Urinary tract infection, site not specified; F32.9 Major depressive disorder, single episode, unspecified; E11.9 Type 2 diabetes mellitus without complications; Z79.82 Long term (current) use of aspirin; Z79.899 Other long term (current) drug therapy; Z87.891 Personal history of nicotine dependence; Z90.710 Acquired absence of both cervix and uterus; Z80.1 Family history of malignant neoplasm of trachea, bronchus and lung
CPT/HCPCS: 71045; 80053 ×2; 80061; 83690; 83735; 83874; 83880; 84484 ×2; 85025 ×2; 85610; 85730; 93005 ×2; 99283; G0378; 36415

== ENCOUNTER → 2020-10-17 | Outpatient (CLI) | payer MEDICARE, OTHER ==
[~2020-10-17] MED LIST changes: +ACET-2650 PO; +ACHD5005 PO; +ATOR40TA70 PO; +DENO60DI SQ; +FLUO40CA PO; +HYDR25TA4 PO; +L GA1CAP2 PO; +METO50TA7 PO; +MULT-1029 PO; +POTASSIUM PO; +TRIM100T PO
== END ==
LOC: CARD 10:00
PROVIDERS: ATTEND Internal Medicine Cardiovascular Disease
DX: I10 Essential (primary) hypertension (principal); I08.0 Rheumatic disorders of both mitral and aortic valves
CPT/HCPCS: 93306

== ENCOUNTER → 2021-09-29 | Outpatient (CLI) | payer MEDICARE, OTHER ==
[~2021-09-29] MED LIST changes: +ESCI20TA39 PO; -ESCI20TA45 PO; +GADOTERATE 0.5 MMOL/ML (CLARISCAN) 15 ML VIAL IV ONE; +LISI40TA9 PO
--- NOTE | 2021-09-29 11:54 | Diagnostic Imaging Report ---
Clinical indication: Patient with fixed pupil, confusion postop 08/26/2021. Exam: MRI of the brain performed without and with 13 cc of Clariscan IV contrast. Sequences include axial DWI, ADC map, axial gradient echo, axial T2, axial FLAIR, axial T1, axial T1 post IV contrast, coronal T1 fat-sat post IV contrast, and sagittal T1 post IV contrast. Comparison: None. Findings: There is no evidence of acute cerebral infarct, intracranial hemorrhage, or gross mass effect. There is no abnormal IV contrast enhancement. The brain parenchymal volume appears appropriate for patient's age. There are multiple focal, patchy mildly confluent areas of high T2 signal white matter changes involving both cerebral hemispheres and periventricular regions and essie, likely representing chronic small vessel ischemic disease and leukoaraiosis. There is normal cooper-white matter distinction. There is no significant midline shift or herniation. There is no evidence of hydrocephalus. The basal cisterns are unremarkable. There are postoperative changes to both globes which may be related to lens implants. Otherwise, the skull, extracranial soft tissue, and orbits are unremarkable. The paranasal sinuses are unremarkable. There is minimal fluid in the left mastoid air cells. IMPRESSION: 1: There is no evidence of acute intracranial process. There is no evidence of intracranial mass effect or abnormal IV contrast enhancement. 2: There are age-related brain parenchymal changes with brain parenchymal volume loss, chronic small vessel ischemic disease and leukoaraiosis. 3: There is minimal fluid in left mastoid air cells. Dictated by: Dictated on workstation # [id number]
== END ==
LOC: RAD 10:15
PROVIDERS: ATTEND Family Medicine
DX: I67.81 Acute cerebrovascular insufficiency (principal); H21.569 Pupillary abnormality, unspecified eye; G31.1 Senile degeneration of brain, not elsewhere classified
CPT/HCPCS: 70553

== ENCOUNTER → 2022-01-30 | Outpatient (CLI) | payer MEDICARE, OTHER ==
[~2022-01-30] MED LIST changes: -GADOTERATE 0.5 MMOL/ML (CLARISCAN) 15 ML VIAL IV ONE; -LEVO500T80 PO; +LEVO500T81 PO
--- NOTE | 2022-01-30 11:55 | Diagnostic Imaging Report ---
INDICATION: Routine screening. Comparison is made with prior mammogram from 05/01/2019 and 03/21/2018. 2-D and 3-D bilateral screening mammography was performed with CAD. Scattered fibroglandular densities are identified bilaterally. Benign parenchymal and vascular calcifications are again noted bilaterally. No dominant mass or malignant-appearing microcalcifications are seen. Axillae are unremarkable. IMPRESSION: No mammographic features suspicious for malignancy are identified. ACR BI-RADS Category 2: Benign findings. Result letter will be mailed to the patient. Note: At least 10% of breast cancer is not imaged by mammography. BI-RADS Category 2 Dictated by: Dictated on workstation # [id number]
== END ==
LOC: RAD 10:15
PROVIDERS: ATTEND Family Medicine
DX: Z12.31 Encounter for screening mammogram for malignant neoplasm of breast (principal)
CPT/HCPCS: 77063; 77067

== ENCOUNTER → 2023-03-18 | Outpatient (CLI) | payer MEDICARE, OTHER ==
[~2023-03-18] MED LIST changes: +CATHETER FLUSH 10 ML SYR IVP PRN; -L GA1CAP2 PO; +LEVO-55 PO; -LEVO500T81 PO; +PHILLIPS' COLO1 EAC1 PO; +REGADENOSON 0.4 MG/5 ML SYR (LEXISCAN) IV ONE
[2023-03-18 08:03] VITALS: BP 221/90
--- NOTE | 2023-03-18 12:49 | Cardiology Stress Test Report ---
Stress Test Report Date of Procedure/Referring: Date of Procedure: March 18, 2023 PCP Kwesi Lovett MD Admitting Physician Admitting Physician: Attending Physician: Angela Gonzalez Baseline Heart Rate: 66 Baseline Blood Pressure: Blood Pressure Systolic: 221 Blood Pressure Diastolic: 90 Baseline Vitals Vital Signs Date Time Temp Pulse Resp B/P (MAP) Pulse Ox O2 Delivery O2 Flow Rate FiO2 03/18/23 08:03 66 221/90 (133) 99 Baseline EKG: Baseline EKG: NSR Summary After explaining the procedure to the patient, she signed a consent and then brought to the stress nuclear laboratory. Patient received 0.4 mg Lexiscan for stress test, ECG, heart rate and blood pressure were monitored continuously. Resting and stress dose of radio tracer were injected, imaging was acquired and reviewed in short axis, horizontal long axis and vertical long axis views. TID: 1.08 SSS: 4 SDS: 0 EF: 64 Patient tolerated Lexiscan well No significant ischemia or infarction on SPECT images Baseline hypertension persisted during test Normal left ventricular size, ejection fraction 64% Copy Copies To 1: KWESI LOVETT MD, BASHAR J MD March 18, 2023 12:49
== END ==
LOC: CARD 07:00
PROVIDERS: ATTEND Physician Assistant
DX: I10 Essential (primary) hypertension (principal)
CPT/HCPCS: 78452; 93017; A9502

== ENCOUNTER → 2023-03-22 | Outpatient (CLI) | payer MEDICARE, OTHER ==
[~2023-03-22] MED LIST changes: -CATHETER FLUSH 10 ML SYR IVP PRN; -REGADENOSON 0.4 MG/5 ML SYR (LEXISCAN) IV ONE
== END ==
LOC: CARD 08:27
PROVIDERS: ATTEND Physician Assistant
DX: I08.0 Rheumatic disorders of both mitral and aortic valves (principal); I10 Essential (primary) hypertension
CPT/HCPCS: 93306

== ENCOUNTER → 2023-09-21 | Outpatient (CLI) | payer MEDICARE, OTHER ==
[~2023-09-21] MED LIST changes: -HYDR200T46 PO; +HYDR200T71 PO
--- NOTE | 2023-09-21 15:07 | Diagnostic Imaging Report ---
EXAMINATION: 3D bilateral screening mammogram with CAD. INDICATION: Screening. COMPARISON: This study was compared to the prior exams of 01/30/2022 and 05/01/2019. PERSONAL HISTORY: At this time, there are no current complaints. FINDINGS: There are scattered areas of fibroglandular density. Overall, there does not appear to have been any significant change when compared to the prior exam. There is no primary or secondary sign of malignancy noted. IMPRESSION: There is no radiographic evidence for malignancy. ACR BI-RADS Category 1: Negative. Result letter will be mailed to the patient. Note: At least 10% of breast cancer is not imaged by mammography. Dictated by: Dictated on workstation # [id number]
== END ==
LOC: RAD 10:00
PROVIDERS: ATTEND Physician Assistant
DX: Z12.31 Encounter for screening mammogram for malignant neoplasm of breast (principal)
CPT/HCPCS: 77063; 77067